=== PATIENT | male | born 1970 | race Caucasian/White ===

== ENCOUNTER 2017-05-04 20:24 | Emergency (ER) | payer MEDICAID ==
[~2017-05-04] VITALS: Ht 180.3 cm; Wt 90.9 kg
[2017-05-04 20:42] LABS: GLUCOSE,POINT OF CARE 107 MG/DL (70-110)
[2017-05-04 20:49] LABS: BASOPHILS % (AUTO) 0.5 % (0.0-2.0); EOSINOPHILS % (AUTO) 2.8 % (1.0-6.0); HEMATOCRIT 43.5 % (41-53); HEMOGLOBIN 14.1 g/dL (13.5-17.5); LYMPHOCYTES # (AUTO) 1.7 K/uL (1.0-4.8); MEAN CORPUSCULAR HEMOGLOBIN 30.8 pg (26.0-34.0); MEAN CORPUSCULAR HGB CONC 32.4 G/dL (31.0-37.0); MEAN CORPUSCULAR VOLUME 95 fL (80-100); MONOCYTES # (AUTO) 0.4 K/uL (0.1-1.0); MONOCYTES % (AUTO) 8.3 % (2.0-9.0); NEUTROPHILS % (AUTO) 56.4 % (40.0-70.0); PLATELET COUNT (AUTO) 264 K/uL (150-450); RED BLOOD CELL COUNT(AUTO) 4.58 MIL/uL (4.50-5.90); RED CELL DISTRIBUTION WIDTH 14.7 % (11.5-14.5); WHITE BLOOD COUNT (AUTO) 5.4 K/uL (4.5-11.0)
[2017-05-04 20:56] LABS: ANION GAP 5 mmol/L (8-16); CALCIUM, TOTAL 9.3 mg/dL (8.8-10.5); CARBON DIOXIDE 31 mmol/L (22-29); CHLORIDE 104 mmol/L (98-107); CREATININE 0.98 mg/dL (0.60-1.30); GLOMERULAR FILTR. RATE CALC > 60 mL/min (>60); POTASSIUM 3.7 mmol/L (3.5-5.1); SODIUM SERUM 140 mmol/L (136-145); UREA NITROGEN, BLOOD 14 mg/dL (7-18)
[2017-05-04 21:02] LABS: ALANINE AMINOTRANSFERASE 55 U/L (12-78); ALBUMIN 4.3 g/dL (3.4-5.0); ASPARTATE AMINOTRANSFERASE 20 U/L (15-37); BILIRUBIN,TOTAL 0.3 mg/dL (0.1-1.0); TOTAL PROTEIN, SERUM 7.9 g/dL (6.4-8.2)
[2017-05-04] MEDS ORDERED: LORazepam 2 MG/ML VIAL IM ONE (21:15)
[2017-05-04] MEDS ORDERED: DiphenhydrAMINE HCL 50 MG/ML VIAL IM ONE (21:15)
[2017-05-04] MEDS ORDERED: HALOPERIDOL LACTATE 5 MG/ML VIAL IM ONE (21:15)
[2017-05-05 01:14] VITALS: BP 120/77
== END 2017-05-05 02:13 | disposition home or self-care (01) ==
LOC: EMS 20:27
DX: F20.9 Schizophrenia, unspecified (principal); F31.9 Bipolar disorder, unspecified; E11.9 Type 2 diabetes mellitus without complications; I10 Essential (primary) hypertension; Z87.891 Personal history of nicotine dependence
CPT/HCPCS: 36415; 80053; 80307; 82962; 85025; 96372; 99285; G0480; J1200; J1630; J2060

== ENCOUNTER 2017-05-19 16:08 | Emergency (ER) | payer MEDICAID ==
[~2017-05-19] VITALS: Ht 182.9 cm; Wt 100.0 kg
[2017-05-19 16:09] VITALS: BP 133/80
== END 2017-05-19 18:15 | disposition left against medical advice (07) ==
LOC: EMS 16:08
DX: Z53.21 Procedure and treatment not carried out due to patient leaving prior to being seen by health care provider (principal)

== ENCOUNTER 2018-04-19 14:17 | Emergency (ER) | payer MEDICAID ==
[~2018-04-19] VITALS: Ht 180.3 cm; Wt 100.0 kg
[~2018-04-19 14:17] MED LIST: RISP3 PO
[2018-04-19 14:38] LABS: GLUCOSE,POINT OF CARE 96 MG/DL (70-110)
[2018-04-19 16:34] LABS: BASOPHILS % (AUTO) 0.5 % (0.0-2.0); EOSINOPHILS % (AUTO) 1.9 % (1.0-6.0); HEMATOCRIT 43.5 % (41-53); HEMOGLOBIN 15.3 g/dL (13.5-17.5); LYMPHOCYTES # (AUTO) 1.6 K/uL (1.0-4.8); LYMPHOCYTES % (AUTO) 28.5 % (22.0-44.0); MEAN CORPUSCULAR HEMOGLOBIN 32.6 pg (26.0-34.0); MEAN CORPUSCULAR VOLUME 93 fL (80-100); MONOCYTES # (AUTO) 0.5 K/uL (0.1-1.0); MONOCYTES % (AUTO) 8.4 % (2.0-9.0); NEUTROPHILS # (AUTO) 3.4 K/uL (1.8-7.7); NEUTROPHILS % (AUTO) 60.7 % (40.0-70.0); PLATELET COUNT (AUTO) 268 K/uL (150-450); RED BLOOD CELL COUNT(AUTO) 4.68 MIL/uL (4.50-5.90); RED CELL DISTRIBUTION WIDTH 13.8 % (11.5-14.5)
[2018-04-19 16:42] LABS: ANION GAP 9 mmol/L (8-16); CALCIUM, TOTAL 8.5 mg/dL (8.8-10.5); CARBON DIOXIDE 29 mmol/L (22-29); CHLORIDE 99 mmol/L (98-107); CREATININE 0.83 mg/dL (0.60-1.30); GLOMERULAR FILTR. RATE CALC > 60 mL/min (>60); GLUCOSE,RANDOM 82 mg/dL (70-110); POTASSIUM 3.5 mmol/L (3.5-5.1); SODIUM SERUM 137 mmol/L (136-145); UREA NITROGEN, BLOOD 13 mg/dL (7-18)
[2018-04-19] MEDS ORDERED: PB/HYOSCY/ATR/SCOP/LIDO/MAALOX 55 ML BOTTLE PO ONE (16:45)
[2018-04-19] MEDS ORDERED: LORazepam 2 MG TABLET PO ONE (16:45)
[2018-04-19] MEDS ORDERED: HALOPERIDOL 5 MG TABLET PO ONE (16:45)
[2018-04-19 16:48] LABS: ALANINE AMINOTRANSFERASE 66 U/L (12-78); ALBUMIN 4.4 g/dL (3.4-5.0); ALKALINE PHOSPHATASE 100 U/L (46-116); ASPARTATE AMINOTRANSFERASE 25 U/L (15-37); BILIRUBIN,TOTAL 0.4 mg/dL (0.1-1.0); TOTAL PROTEIN, SERUM 8.6 g/dL (6.4-8.2)
[2018-04-19 18:21] LABS: AMPHET/METH SCREEN,URINE NEGATIVE (NEGATIVE); BARBITURATE SCREEN, URINE NEGATIVE (NEGATIVE); BENZODIAZEPINES SCREEN,URINE NEGATIVE (NEGATIVE); CANNABINOID SCREEN,URINE NEGATIVE (NEGATIVE); COCAINE SCREEN,URINE NEGATIVE (NEGATIVE); METHADONE SCREEN, URINE NEGATIVE (NEGATIVE); OPIATE SCREEN,URINE NEGATIVE (NEGATIVE)
[2018-04-19 18:26] LABS: PHENCYCLIDINE SCREEN,URINE NEGATIVE (NEGATIVE)
[2018-04-19 20:20] VITALS: BP 124/65
== END 2018-04-19 20:21 | disposition home or self-care (01) ==
LOC: EMS 14:20
DX: F20.9 Schizophrenia, unspecified (principal); R10.31 Right lower quadrant pain; F31.9 Bipolar disorder, unspecified; E11.9 Type 2 diabetes mellitus without complications; I10 Essential (primary) hypertension; Z87.891 Personal history of nicotine dependence
CPT/HCPCS: 36415; 80053; 80307; 82962; 85025; 99284; G0480; Z7610

== ENCOUNTER 2018-04-21 05:36 | Emergency (ER) | payer MEDICAID ==
[~2018-04-21] VITALS: Ht 180.3 cm; Wt 97.7 kg
[2018-04-21 05:51] VITALS: BP 142/80
== END 2018-04-21 06:39 | disposition home or self-care (01) ==
LOC: EMS 05:38
DX: F20.9 Schizophrenia, unspecified (principal); L29.9 Pruritus, unspecified; F31.9 Bipolar disorder, unspecified; E11.9 Type 2 diabetes mellitus without complications; I10 Essential (primary) hypertension; Z59.0 Homelessness; Z87.891 Personal history of nicotine dependence
CPT/HCPCS: 99283; 99406

== ENCOUNTER 2018-04-23 13:38 | Emergency (ER) | payer MEDICAID ==
[~2018-04-23] VITALS: Ht 180.3 cm; Wt 100.0 kg
[2018-04-23 14:03] LABS: GLUCOSE,POINT OF CARE 100 MG/DL (70-110)
[2018-04-23 14:43] VITALS: BP 128/74
[2018-04-23] MEDS ORDERED: NYSTATIN 15 GM POWDER BOTTLE TP ONE (15:00)
[2018-04-23] MEDS ORDERED: TERBINAFINE HCL 1% 30 GM CREAM TP ONE (15:00)
== END 2018-04-23 15:18 | disposition home or self-care (01) ==
LOC: EMS 13:39
DX: B35.3 Tinea pedis (principal); E11.9 Type 2 diabetes mellitus without complications; I10 Essential (primary) hypertension; Z87.891 Personal history of nicotine dependence
CPT/HCPCS: 99283

== ENCOUNTER 2018-05-05 00:30 | Emergency (ER) | payer MEDICAID ==
[~2018-05-05] VITALS: Ht 177.8 cm; Wt 100.0 kg
[2018-05-05 02:14] VITALS: BP 141/75
== END 2018-05-05 02:42 | disposition home or self-care (01) ==
LOC: EMS 00:31
DX: S42.002A Fracture of unspecified part of left clavicle, initial encounter for closed fracture (principal); E11.9 Type 2 diabetes mellitus without complications; I10 Essential (primary) hypertension; F20.9 Schizophrenia, unspecified; Z87.891 Personal history of nicotine dependence; X58.XXXA Exposure to other specified factors, initial encounter; Y93.89 Activity, other specified; Y92.89 Other specified places as the place of occurrence of the external cause; Y99.8 Other external cause status
CPT/HCPCS: 99281

== ENCOUNTER 2018-05-05 19:51 | Emergency (ER) | payer MEDICAID ==
[~2018-05-05] VITALS: Ht 180.3 cm; Wt 100.0 kg
[2018-05-05 21:51] VITALS: BP 133/71
== END 2018-05-05 21:52 | disposition home or self-care (01) ==
LOC: EMS 19:55
DX: S42.002A Fracture of unspecified part of left clavicle, initial encounter for closed fracture (principal); I10 Essential (primary) hypertension; E11.9 Type 2 diabetes mellitus without complications; F20.9 Schizophrenia, unspecified; F32.9 Major depressive disorder, single episode, unspecified; Z87.891 Personal history of nicotine dependence; X58.XXXA Exposure to other specified factors, initial encounter; Y93.89 Activity, other specified; Y92.89 Other specified places as the place of occurrence of the external cause; Y99.8 Other external cause status
CPT/HCPCS: 29105; 99283

== ENCOUNTER 2018-06-05 17:53 | Emergency (ER) | payer MEDICAID ==
[~2018-06-05] VITALS: Ht 177.8 cm; Wt 90.9 kg
[2018-06-05 19:34] LABS: GLUCOSE,POINT OF CARE 98 MG/DL (70-110)
[2018-06-05] MEDS ORDERED: IBUPROFEN 600 MG TABLET PO ONE (20:30)
[2018-06-05 21:48] VITALS: BP 109/65
== END 2018-06-05 22:08 | disposition home or self-care (01) ==
LOC: EMS 17:53
DX: S42.022A Displaced fracture of shaft of left clavicle, initial encounter for closed fracture (principal); F20.9 Schizophrenia, unspecified; E11.8 Type 2 diabetes mellitus with unspecified complications; I10 Essential (primary) hypertension; F31.9 Bipolar disorder, unspecified; Z90.49 Acquired absence of other specified parts of digestive tract; Z87.891 Personal history of nicotine dependence; W19.XXXA Unspecified fall, initial encounter; Y93.89 Activity, other specified; Y92.89 Other specified places as the place of occurrence of the external cause; Y99.8 Other external cause status
CPT/HCPCS: 99284

== ENCOUNTER 2018-06-06 10:43 | Emergency (ER) | payer MEDICAID ==
[~2018-06-06] VITALS: Ht 177.8 cm; Wt 90.9 kg
[2018-06-06] MEDS ORDERED: IBUPROFEN 600 MG TABLET PO ONE (11:30)
[2018-06-06 12:39] LABS: ANION GAP 3 mmol/L (8-16); CALCIUM, TOTAL 8.4 mg/dL (8.8-10.5); CARBON DIOXIDE 28 mmol/L (22-29); CHLORIDE 105 mmol/L (98-107); CREATININE 0.67 mg/dL (0.60-1.30); GLOMERULAR FILTR. RATE CALC > 60 mL/min (>60); GLUCOSE,RANDOM 88 mg/dL (70-110); POTASSIUM 3.8 mmol/L (3.5-5.1); SODIUM SERUM 136 mmol/L (136-145); UREA NITROGEN, BLOOD 10 mg/dL (7-18)
[2018-06-06 12:44] LABS: ALANINE AMINOTRANSFERASE 43 U/L (12-78); ALBUMIN 3.6 g/dL (3.4-5.0); ALKALINE PHOSPHATASE 93 U/L (46-116); ASPARTATE AMINOTRANSFERASE 18 U/L (15-37); BILIRUBIN,TOTAL 0.4 mg/dL (0.1-1.0)
[2018-06-06 12:59] LABS: BASOPHILS % (AUTO) 0.9 % (0.0-2.0); EOSINOPHILS % (AUTO) 3.6 % (1.0-6.0); HEMATOCRIT 41.1 % (41-53); HEMOGLOBIN 14.3 g/dL (13.5-17.5); LYMPHOCYTES # (AUTO) 1.2 K/uL (1.0-4.8); LYMPHOCYTES % (AUTO) 33.7 % (22.0-44.0); MEAN CORPUSCULAR HEMOGLOBIN 32.7 pg (26.0-34.0); MEAN CORPUSCULAR HGB CONC 34.7 G/dL (31.0-37.0); MEAN CORPUSCULAR VOLUME 94 fL (80-100); MONOCYTES # (AUTO) 0.3 K/uL (0.1-1.0); MONOCYTES % (AUTO) 8.3 % (2.0-9.0); NEUTROPHILS % (AUTO) 53.5 % (40.0-70.0); PLATELET COUNT (AUTO) 246 K/uL (150-450); RED BLOOD CELL COUNT(AUTO) 4.37 MIL/uL (4.50-5.90); RED CELL DISTRIBUTION WIDTH 13.6 % (11.5-14.5)
[2018-06-06 13:02] LABS: AMPHET/METH SCREEN,URINE NEGATIVE (NEGATIVE); BARBITURATE SCREEN, URINE NEGATIVE (NEGATIVE); BENZODIAZEPINES SCREEN,URINE NEGATIVE (NEGATIVE); CANNABINOID SCREEN,URINE NEGATIVE (NEGATIVE); COCAINE SCREEN,URINE NEGATIVE (NEGATIVE); METHADONE SCREEN, URINE NEGATIVE (NEGATIVE); OPIATE SCREEN,URINE NEGATIVE (NEGATIVE)
[2018-06-06 13:03] LABS: PHENCYCLIDINE SCREEN,URINE NEGATIVE (NEGATIVE)
[2018-06-06 13:35] VITALS: BP 103/66
== END 2018-06-06 13:55 | disposition home or self-care (01) ==
LOC: EMS 10:45
DX: F20.0 Paranoid schizophrenia (principal); R45.851 Suicidal ideations; E11.9 Type 2 diabetes mellitus without complications; I10 Essential (primary) hypertension; Z87.891 Personal history of nicotine dependence
CPT/HCPCS: 36415; 80053; 80307; 83880; 84484; 85025; 93005; 99285; G0480

== ENCOUNTER 2018-06-25 17:24 | Emergency (ER) | payer MEDICAID ==
[~2018-06-25] VITALS: Ht 177.8 cm; Wt 90.5 kg
[2018-06-25] MEDS ORDERED: KETOROLAC TROMETHAMINE 10 MG TABLET PO ONE (19:45)
[2018-06-25 21:09] VITALS: BP 120/70
== END 2018-06-25 21:12 | disposition home or self-care (01) ==
LOC: EMS 17:25
DX: S40.012A Contusion of left shoulder, initial encounter (principal); S60.419A Abrasion of unspecified finger, initial encounter; I10 Essential (primary) hypertension; E11.9 Type 2 diabetes mellitus without complications; Z87.891 Personal history of nicotine dependence; W01.0XXA Fall on same level from slipping, tripping and stumbling without subsequent striking against object, initial encounter; Y93.89 Activity, other specified; Y92.89 Other specified places as the place of occurrence of the external cause; Y99.8 Other external cause status
CPT/HCPCS: 99284

== ENCOUNTER 2020-12-18 02:10 | Emergency (ER) | payer MEDICAID, OTHER ==
[~2020-12-18] VITALS: Ht 172.7 cm; Wt 79.5 kg
[2020-12-18 04:20] LABS: GLUCOSE,POINT OF CARE 85 MG/DL (70-110)
[2020-12-18 07:10] VITALS: BP 117/73
== END 2020-12-18 07:14 | disposition home or self-care (01) ==
LOC: EMS 02:11
DX: M79.671 Pain in right foot (principal); M79.672 Pain in left foot; I10 Essential (primary) hypertension; E11.9 Type 2 diabetes mellitus without complications; Z87.891 Personal history of nicotine dependence

== ENCOUNTER 2020-12-19 04:43 | Emergency (ER) | payer OTHER ==
[~2020-12-19] VITALS: Ht 175.3 cm; Wt 75.0 kg
[2020-12-19 05:24] VITALS: BP 136/78
[2020-12-19] MEDS ORDERED: BACITRACIN 0.9 GM PACKET OINTMENT TP ONE (05:30)
== END 2020-12-19 06:03 | disposition home or self-care (01) ==
LOC: EMS 04:44
DX: S90.812A Abrasion, left foot, initial encounter (principal); S90.811A Abrasion, right foot, initial encounter; F31.9 Bipolar disorder, unspecified; E11.9 Type 2 diabetes mellitus without complications; I10 Essential (primary) hypertension; Z87.891 Personal history of nicotine dependence; W10.8XXA Fall (on) (from) other stairs and steps, initial encounter; Y93.89 Activity, other specified; Y92.89 Other specified places as the place of occurrence of the external cause; Y99.8 Other external cause status
CPT/HCPCS: Z7502; Z7610

== ENCOUNTER 2021-08-30 07:19 | Emergency (ER) | payer OTHER ==
[~2021-08-30] VITALS: Ht 177.8 cm; Wt 102.3 kg
[2021-08-30] MEDS ORDERED: ACETAMINOPHEN 500 MG TABLET PO ONE (08:30)
[2021-08-30] MEDS ORDERED: LIDOCAINE 5% TRANSDERMAL PATCH TD ONE (08:30)
[2021-08-30 09:56] VITALS: BP 98/56
== END 2021-08-30 10:07 | disposition home or self-care (01) ==
LOC: EMS 07:21
DX: S39.012A Strain of muscle, fascia and tendon of lower back, initial encounter (principal); I10 Essential (primary) hypertension; F20.9 Schizophrenia, unspecified; F31.9 Bipolar disorder, unspecified; X58.XXXA Exposure to other specified factors, initial encounter; Y93.89 Activity, other specified; Y92.89 Other specified places as the place of occurrence of the external cause; Y99.8 Other external cause status; E11.9 Type 2 diabetes mellitus without complications
CPT/HCPCS: 99283

== ENCOUNTER 2021-08-31 01:59 | Emergency (ER) | payer OTHER ==
[~2021-08-31] VITALS: Ht 177.8 cm; Wt 111.4 kg
[2021-08-31 04:09] VITALS: BP 135/78
== END 2021-08-31 07:21 | disposition home or self-care (01) ==
LOC: EMS 02:03
DX: G89.29 Other chronic pain (principal); M54.9 Dorsalgia, unspecified; F31.9 Bipolar disorder, unspecified; F20.9 Schizophrenia, unspecified; I10 Essential (primary) hypertension; E11.9 Type 2 diabetes mellitus without complications; Z87.891 Personal history of nicotine dependence
CPT/HCPCS: 99281; Z7502

== ENCOUNTER 2021-08-31 16:56 | Inpatient (IN) | payer MEDICAID, OTHER ==
[~2021-08-31] VITALS: Ht 177.8 cm; Wt 88.9 kg
[2021-08-31 17:49] LABS: COVID AG,FIA SOURCE NASOPHARYNGEAL
[2021-08-31 18:06] LABS: BASOPHILS % (AUTO) 0.7 % (0.0-2.0); EOSINOPHILS % (AUTO) 1.7 % (1.0-6.0); HEMATOCRIT 39.8 % (41-53); HEMOGLOBIN 13.4 g/dL (13.5-17.5); LYMPHOCYTES # (AUTO) 1.1 K/uL (1.0-4.8); LYMPHOCYTES % (AUTO) 24.9 % (22.0-44.0); MEAN CORPUSCULAR HEMOGLOBIN 30.8 pg (26.0-34.0); MEAN CORPUSCULAR HGB CONC 33.8 G/dL (31.0-37.0); MEAN CORPUSCULAR VOLUME 91 fL (80-100); MONOCYTES # (AUTO) 0.5 K/uL (0.1-1.0); MONOCYTES % (AUTO) 10.8 % (2.0-9.0); NEUTROPHILS # (AUTO) 2.8 K/uL (1.8-7.7); NEUTROPHILS % (AUTO) 61.9 % (40.0-70.0); PLATELET COUNT (AUTO) 258 K/uL (150-450); RED BLOOD CELL COUNT(AUTO) 4.37 MIL/uL (4.50-5.90); RED CELL DISTRIBUTION WIDTH 14.3 % (11.5-14.5)
[2021-08-31 18:37] LABS: ANION GAP 6 mmol/L (8-16); CALCIUM, TOTAL 8.4 mg/dL (8.8-10.5); CARBON DIOXIDE 29 mmol/L (22-29); CHLORIDE 101 mmol/L (98-107); CREATININE 0.83 mg/dL (0.60-1.30); GLOMERULAR FILTR. RATE CALC > 60 mL/min (>60); GLUCOSE,RANDOM 90 mg/dL (70-110); POTASSIUM 4.1 mmol/L (3.5-5.1); SODIUM SERUM 136 mmol/L (136-145); UREA NITROGEN, BLOOD 14 mg/dL (7-18)
[2021-08-31 18:42] LABS: ALANINE AMINOTRANSFERASE 41 U/L (12-78); ALBUMIN 3.9 g/dL (3.4-5.0); ALKALINE PHOSPHATASE 98 U/L (46-116); ASPARTATE AMINOTRANSFERASE 25 U/L (15-37); BILIRUBIN,TOTAL 0.3 mg/dL (0.1-1.0); TOTAL PROTEIN, SERUM 7.9 g/dL (6.4-8.2)
[2021-09-01 07:01] LABS: CHOL/HDL RATIO 3.4 (4.2-7.3); CHOLESTEROL 194 mg/dL (131-200); HDL CHOLESTEROL 57 mg/dL (40-60); LDL CHOL (CALC.) 112 mg/dL (0-130); TRIGLYCERIDES 123 mg/dL (15-150)
[2021-09-01 07:25] LABS: APPEARANCE,URINE CLEAR (CLEAR); BILIRUBIN,URINE NEGATIVE (NEGATIVE); GLUCOSE, URINE (UA) NEGATIVE (NEGATIVE); KETONES,URINE NEGATIVE (NEGATIVE); LEUKOCYTE ESTERASE ,URINE NEGATIVE (NEGATIVE); NITRATE,URINE NEGATIVE (NEGATIVE); OCCULT BLOOD,URINE NEGATIVE (NEGATIVE); PROTEIN,URINE NEGATIVE (NEGATIVE); UROBILINOGEN,URINE 0.2 mg/dL (<=1.0)
[2021-09-01 07:30] LABS: AMPHET/METH SCREEN,URINE NEGATIVE (NEGATIVE); BARBITURATE SCREEN, URINE NEGATIVE (NEGATIVE); BENZODIAZEPINES SCREEN,URINE NEGATIVE (NEGATIVE); CANNABINOID SCREEN,URINE NEGATIVE (NEGATIVE); COCAINE SCREEN,URINE NEGATIVE (NEGATIVE); METHADONE SCREEN, URINE NEGATIVE (NEGATIVE); OPIATE SCREEN,URINE NEGATIVE (NEGATIVE)
[2021-09-01 07:31] LABS: PHENCYCLIDINE SCREEN,URINE NEGATIVE (NEGATIVE)
[2021-09-01] MEDS: LORazepam 2 MG TABLET PO PRN (14:40)
[2021-09-01] MEDS: QUEtiapine FUMARATE 100 MG TABLET PO PRN (14:41)
[2021-09-01 18:13] VITALS: BP 136/84
[2021-09-01] MEDS ORDERED: INFLUENZA VIRUS VACCINE QVS 2021-22 (6MO+)/PF 60 MCG/0.5 ML SYRINGE IM. ONE (18:30)
[2021-09-01] MEDS ORDERED: PNEUMOCOCCAL VACCINE POLYVALENT 0.5 ML VIAL [PPSV23] IM. ONE (18:30)
[2021-09-02] MEDS ORDERED: LOPERAMIDE HCL 2 MG CAPSULE PO PRN (16:00)
[2021-09-02] MEDS ORDERED: NICOTINE 14 MG/24 HOUR PATCH TD PRN (16:00)
[2021-09-02] MEDS ORDERED: DOCUSATE SODIUM 100 MG CAPSULE PO PRN (16:00)
[2021-09-02] MEDS ORDERED: ONDANSETRON HCL 4 MG TABLET PO PRN (16:00)
[2021-09-02] MEDS ORDERED: CloNIDine HCL 0.1 MG TABLET PO PRN (16:00)
[2021-09-02] MEDS ORDERED: MAGNESIUM HYDROXIDE SUSPENSION 30 ML UDCUP PO PRN (16:00)
[2021-09-02] MEDS ORDERED: PETROLATUM,WHITE 28 GM JELLY TP PRN (16:00)
[2021-09-02] MEDS ORDERED: MAG HYDROX/AL HYDROX/SIMETH ES 30 ML SUSPENSION UDCUP PO PRN (16:00)
[2021-09-02] MEDS ORDERED: GuaiFENesin/D-METHORPHAN [SUGAR-FREE] 200-20MG/10 ML SYRUP UDCUP PO PRN (16:00)
[2021-09-02] MEDS ORDERED: ACETAMINOPHEN 325 MG TABLET PO PRN (16:00)
[2021-09-02] MEDS ORDERED: ALBUTEROL SULFATE HFA 90 MCG/PUFF 8 GM INHALER IH PRN (16:00)
[2021-09-02] MEDS ORDERED: IBUPROFEN 400 MG TABLET PO PRN (16:00)
[2021-09-02 16:28] VITALS: BP 110/72
[2021-09-02] MEDS: RisperiDONE 2 MG TABLET PO SCH (17:17)
[2021-09-02] MEDS: ZOLPIDEM TARTRATE 10 MG TABLET PO PRN (22:09)
[2021-09-02] MEDS: LORazepam 2 MG TABLET PO PRN (22:10)
[2021-09-03 09:31] VITALS: BP 121/79
[2021-09-03] MEDS: RisperiDONE 2 MG TABLET PO SCH ×2 (09:31→16:31)
[2021-09-03 16:56] VITALS: BP 110/72
[2021-09-04 00:05] VITALS: BP 100/63
[2021-09-04 08:48] VITALS: BP 91/64
[2021-09-04] MEDS: RisperiDONE 2 MG TABLET PO SCH ×2 (09:36→16:58)
[2021-09-04 16:00] VITALS: BP 116/76
[2021-09-05 08:35] VITALS: BP 102/76
[2021-09-05] MEDS: RisperiDONE 2 MG TABLET PO SCH ×2 (10:56→16:20)
[2021-09-05 16:00] VITALS: BP 106/65
[2021-09-06] MEDS: RisperiDONE 2 MG TABLET PO SCH ×2 (08:36→16:33)
[2021-09-06 14:26] LABS: COVID AG,FIA SOURCE NASAL SWAB
[2021-09-06 16:00] VITALS: BP 104/60
[2021-09-07] MEDS: RisperiDONE 2 MG TABLET PO SCH ×2 (08:04→16:21)
[2021-09-07 08:28] VITALS: BP 103/68
[2021-09-07 16:18] VITALS: BP 110/70
[2021-09-08 08:00] VITALS: BP 107/70
[2021-09-08] MEDS: RisperiDONE 2 MG TABLET PO SCH (13:02)
[2021-09-08 16:00] VITALS: BP 98/62
[2021-09-08] MEDS: RisperiDONE 3 MG TABLET PO SCH (20:28)
[2021-09-09 08:00] VITALS: BP 98/60
[2021-09-09] MEDS: RisperiDONE 3 MG TABLET PO SCH ×2 (09:30→20:45)
[2021-09-09 17:24] VITALS: BP 99/69
[2021-09-10] MEDS: RisperiDONE 3 MG TABLET PO SCH ×2 (08:50→20:20)
[2021-09-10 10:05] VITALS: BP 87/50
[2021-09-10 17:00] VITALS: BP 110/66
[2021-09-11 08:00] VITALS: BP 97/63
[2021-09-11] MEDS: RisperiDONE 3 MG TABLET PO SCH ×2 (09:58→21:45)
[2021-09-11 16:24] VITALS: BP 131/82
[2021-09-11] MEDS: QUEtiapine FUMARATE 100 MG TABLET PO PRN (17:42)
[2021-09-11] MEDS: ZOLPIDEM TARTRATE 10 MG TABLET PO PRN (21:45)
[2021-09-12] MEDS: RisperiDONE 3 MG TABLET PO SCH ×2 (08:36→21:05)
[2021-09-12 08:45] VITALS: BP 104/60
[2021-09-12] MEDS: DIVALPROEX SODIUM 500 MG DR TABLET PO SCH (21:05)
[2021-09-13 01:20] VITALS: BP 101/66
[2021-09-13] MEDS: ZOLPIDEM TARTRATE 10 MG TABLET PO PRN (01:28)
[2021-09-13 09:07] VITALS: BP 96/60
[2021-09-13] MEDS: DIVALPROEX SODIUM 500 MG DR TABLET PO SCH ×2 (13:21→20:18)
[2021-09-13] MEDS: RisperiDONE 3 MG TABLET PO SCH ×2 (13:21→20:18)
[2021-09-13 15:33] LABS: COVID AG,FIA SOURCE NASAL SWAB
[2021-09-13 16:00] VITALS: BP 99/57
[2021-09-14] MEDS: RisperiDONE 3 MG TABLET PO SCH ×2 (08:57→20:16)
[2021-09-14] MEDS: DIVALPROEX SODIUM 500 MG DR TABLET PO SCH ×2 (08:57→20:16)
[2021-09-14 16:00] VITALS: BP 110/81
[2021-09-15 08:17] VITALS: BP 101/51
[2021-09-15] MEDS: RisperiDONE 3 MG TABLET PO SCH ×2 (08:24→20:08)
[2021-09-15] MEDS: DIVALPROEX SODIUM 500 MG DR TABLET PO SCH ×2 (08:24→20:08)
[2021-09-15 16:00] VITALS: BP 103/65
[2021-09-16 00:31] VITALS: BP 104/65
[2021-09-16] MEDS: DIVALPROEX SODIUM 500 MG DR TABLET PO SCH ×2 (08:47→20:48)
[2021-09-16] MEDS: RisperiDONE 3 MG TABLET PO SCH ×2 (08:47→20:48)
[2021-09-16 09:05] VITALS: BP 90/44
[2021-09-16] MEDS: QUEtiapine FUMARATE 100 MG TABLET PO PRN (16:49)
[2021-09-16 16:53] VITALS: BP 90/55
[2021-09-16] MEDS: ZOLPIDEM TARTRATE 10 MG TABLET PO PRN (20:48)
[2021-09-17 08:00] VITALS: BP_SYST 112; BP_SYST 138; BP_DIAS 65; BP_DIAS 81
[2021-09-17] MEDS: RisperiDONE 3 MG TABLET PO SCH ×2 (08:23→20:09)
[2021-09-17] MEDS: DIVALPROEX SODIUM 500 MG DR TABLET PO SCH ×2 (08:23→20:09)
[2021-09-17 16:00] VITALS: BP 95/79
[2021-09-18 09:25] VITALS: BP 108/67
[2021-09-18] MEDS: DIVALPROEX SODIUM 500 MG DR TABLET PO SCH ×2 (09:31→20:26)
[2021-09-18] MEDS: RisperiDONE 3 MG TABLET PO SCH ×2 (09:31→20:26)
[2021-09-18 16:45] VITALS: BP 127/60
[2021-09-19 08:00] VITALS: BP 90/60
[2021-09-19] MEDS: RisperiDONE 3 MG TABLET PO SCH ×2 (08:55→20:49)
[2021-09-19] MEDS: DIVALPROEX SODIUM 500 MG DR TABLET PO SCH ×2 (08:55→20:49)
[2021-09-19] MEDS: QUEtiapine FUMARATE 100 MG TABLET PO PRN (20:49)
[2021-09-19] MEDS: ZOLPIDEM TARTRATE 10 MG TABLET PO PRN (21:07)
[2021-09-20 08:00] VITALS: BP 107/71
[2021-09-20] MEDS: DIVALPROEX SODIUM 500 MG DR TABLET PO SCH ×3 (08:59→21:15)
[2021-09-20] MEDS: RisperiDONE 3 MG TABLET PO SCH ×3 (08:59→21:15)
[2021-09-20 16:33] VITALS: BP 99/67
[2021-09-20] MEDS: QUEtiapine FUMARATE 100 MG TABLET PO PRN (19:29)
[2021-09-20] MEDS: ZOLPIDEM TARTRATE 10 MG TABLET PO PRN (21:15)
[2021-09-21] MEDS: DIVALPROEX SODIUM 500 MG DR TABLET PO SCH ×2 (08:42→20:55)
[2021-09-21] MEDS: RisperiDONE 3 MG TABLET PO SCH ×2 (08:42→20:55)
[2021-09-21 09:29] VITALS: BP 120/84
[2021-09-21 13:00] LABS: COVID AG,FIA SOURCE NASOPHARYNGEAL
[2021-09-21 16:26] VITALS: BP 126/77
[2021-09-21] MEDS: QUEtiapine FUMARATE 100 MG TABLET PO PRN (16:50)
[2021-09-21] MEDS: ZOLPIDEM TARTRATE 10 MG TABLET PO PRN (21:21)
[2021-09-22] MEDS: DIVALPROEX SODIUM 500 MG DR TABLET PO SCH ×2 (08:36→20:19)
[2021-09-22] MEDS: RisperiDONE 3 MG TABLET PO SCH ×2 (08:36→20:19)
[2021-09-22 09:50] VITALS: BP 97/59
[2021-09-22] MEDS: ZOLPIDEM TARTRATE 10 MG TABLET PO PRN (20:20)
[2021-09-23] MEDS: DIVALPROEX SODIUM 500 MG DR TABLET PO SCH ×2 (08:38→20:05)
[2021-09-23] MEDS: RisperiDONE 3 MG TABLET PO SCH ×2 (08:38→20:05)
[2021-09-23 14:34] VITALS: BP 94/61
[2021-09-23 16:00] VITALS: BP 102/70
[2021-09-24] MEDS: DIVALPROEX SODIUM 500 MG DR TABLET PO SCH ×2 (13:37→20:15)
[2021-09-24] MEDS: RisperiDONE 3 MG TABLET PO SCH ×2 (13:38→20:15)
[2021-09-24 16:00] VITALS: BP 116/78
[2021-09-25 08:30] VITALS: BP 102/68
[2021-09-25] MEDS: RisperiDONE 3 MG TABLET PO SCH ×2 (10:03→20:45)
[2021-09-25] MEDS: DIVALPROEX SODIUM 500 MG DR TABLET PO SCH ×2 (10:03→20:45)
[2021-09-25 16:00] VITALS: BP 121/79
[2021-09-25] MEDS: QUEtiapine FUMARATE 100 MG TABLET PO PRN (17:04)
[2021-09-25] MEDS: ZOLPIDEM TARTRATE 10 MG TABLET PO PRN (20:45)
[2021-09-26] MEDS: DIVALPROEX SODIUM 500 MG DR TABLET PO SCH ×2 (08:23→20:15)
[2021-09-26] MEDS: RisperiDONE 3 MG TABLET PO SCH ×2 (08:23→20:15)
[2021-09-26 09:45] VITALS: BP 96/60
[2021-09-26 16:18] VITALS: BP 113/65
[2021-09-27] MEDS: DIVALPROEX SODIUM 500 MG DR TABLET PO SCH ×2 (09:01→20:16)
[2021-09-27] MEDS: RisperiDONE 3 MG TABLET PO SCH ×2 (09:01→20:16)
[2021-09-27 10:32] VITALS: BP 95/66
[2021-09-27 16:00] VITALS: BP 130/69
[2021-09-27 16:57] VITALS: BP 130/69
[2021-09-28 00:10] VITALS: BP 116/76
[2021-09-28 08:30] VITALS: BP 100/60
[2021-09-28] MEDS: RisperiDONE 3 MG TABLET PO SCH ×2 (10:22→20:34)
[2021-09-28] MEDS: DIVALPROEX SODIUM 500 MG DR TABLET PO SCH ×2 (10:22→20:34)
[2021-09-28 15:32] LABS: COVID AG,FIA SOURCE NASOPHARYNGEAL
[2021-09-28 16:00] VITALS: BP 105/73
[2021-09-29 08:42] VITALS: BP 105/63
[2021-09-29] MEDS: DIVALPROEX SODIUM 500 MG DR TABLET PO SCH ×2 (09:05→20:40)
[2021-09-29] MEDS: RisperiDONE 3 MG TABLET PO SCH ×2 (09:05→20:40)
[2021-09-29 16:13] VITALS: BP 130/79
[2021-09-29 16:49] LABS: HEMOGLOBIN A1C 5.5 % (3.8-5.6)
[2021-09-30 00:24] VITALS: BP 108/70
[2021-09-30] MEDS: ZOLPIDEM TARTRATE 10 MG TABLET PO PRN ×2 (00:24→20:30)
[2021-09-30] MEDS: RisperiDONE 3 MG TABLET PO SCH ×2 (08:38→20:29)
[2021-09-30] MEDS: DIVALPROEX SODIUM 500 MG DR TABLET PO SCH ×2 (08:38→20:30)
[2021-09-30 08:45] VITALS: BP 107/69
[2021-09-30 16:00] VITALS: BP 97/60
[2021-10-01 08:00] VITALS: BP 120/70
[2021-10-01] MEDS: DIVALPROEX SODIUM 500 MG DR TABLET PO SCH ×2 (08:24→20:21)
[2021-10-01] MEDS: RisperiDONE 3 MG TABLET PO SCH ×2 (08:24→20:21)
[2021-10-01 16:26] VITALS: BP 98/68
[2021-10-02 08:00] VITALS: BP 104/63
[2021-10-02] MEDS: DIVALPROEX SODIUM 500 MG DR TABLET PO SCH ×2 (10:01→20:03)
[2021-10-02] MEDS: RisperiDONE 3 MG TABLET PO SCH ×2 (10:01→20:03)
[2021-10-02 16:24] VITALS: BP 113/76
[2021-10-03] MEDS: DIVALPROEX SODIUM 500 MG DR TABLET PO SCH ×2 (09:46→21:06)
[2021-10-03] MEDS: MULTIVITAMINS WITH IRON TABLET PO SCH (09:46)
[2021-10-03] MEDS: RisperiDONE 3 MG TABLET PO SCH ×2 (09:46→21:06)
[2021-10-03 10:21] VITALS: BP 112/55
[2021-10-03] MEDS ORDERED: IBUPROFEN 400 MG TABLET PO PRN (10:45)
[2021-10-03] MEDS ORDERED: PETROLATUM,WHITE 28 GM JELLY TP PRN (10:45)
[2021-10-03] MEDS ORDERED: DOCUSATE SODIUM 100 MG CAPSULE PO PRN (10:45)
[2021-10-03] MEDS ORDERED: ALBUTEROL SULFATE HFA 90 MCG/PUFF 8 GM INHALER IH PRN (10:45)
[2021-10-03] MEDS ORDERED: NICOTINE 14 MG/24 HOUR PATCH TD PRN (10:45)
[2021-10-03] MEDS ORDERED: LOPERAMIDE HCL 2 MG CAPSULE PO PRN (10:45)
[2021-10-03] MEDS ORDERED: GuaiFENesin/D-METHORPHAN [SUGAR-FREE] 200-20MG/10 ML SYRUP UDCUP PO PRN (10:45)
[2021-10-03] MEDS ORDERED: MAGNESIUM HYDROXIDE SUSPENSION 30 ML UDCUP PO PRN (10:45)
[2021-10-03] MEDS ORDERED: ACETAMINOPHEN 325 MG TABLET PO PRN (10:45)
[2021-10-03] MEDS ORDERED: ONDANSETRON HCL 4 MG TABLET PO PRN (10:45)
[2021-10-03] MEDS ORDERED: MAG HYDROX/AL HYDROX/SIMETH ES 30 ML SUSPENSION UDCUP PO PRN (10:45)
[2021-10-03] MEDS ORDERED: CloNIDine HCL 0.1 MG TABLET PO PRN (10:45)
[2021-10-03 17:20] VITALS: BP 103/70
[2021-10-03] MEDS: QUEtiapine FUMARATE 100 MG TABLET PO PRN (18:04)
[2021-10-03] MEDS: ZOLPIDEM TARTRATE 10 MG TABLET PO PRN (21:06)
[2021-10-04] MEDS ORDERED: RISP3TAB44 PO (00:41)
[2021-10-04] MEDS ORDERED: DIVA-112 PO (00:41)
[2021-10-04 08:00] VITALS: BP 117/84
[2021-10-04] MEDS: RisperiDONE 3 MG TABLET PO SCH (08:32)
[2021-10-04] MEDS: DIVALPROEX SODIUM 500 MG DR TABLET PO SCH (08:32)
[2021-10-04] MEDS: MULTIVITAMINS WITH IRON TABLET PO SCH (08:32)
== END 2021-10-04 10:40 | disposition home or self-care (01) | DRG 750 ==
LOC: EMS 16:59 → 3EI 09-01 16:30
PROVIDERS: ADMIT Psychiatry & Neurology Psychiatry; ATTEND Psychiatry & Neurology Psychiatry
DX: F20.0 Paranoid schizophrenia (principal); E11.9 Type 2 diabetes mellitus without complications; E86.0 Dehydration; D64.9 Anemia, unspecified; F10.10 Alcohol abuse, uncomplicated; F99 Mental disorder, not otherwise specified; I10 Essential (primary) hypertension; Z20.822 Contact with and (suspected) exposure to COVID-19; Z71.41 Alcohol abuse counseling and surveillance of alcoholic; Z79.899 Other long term (current) drug therapy; Z59.00 Homelessness unspecified; Z87.891 Personal history of nicotine dependence
CPT/HCPCS: 80053; 80061; 80164; 81003; 83036; 85025; G0480

== ENCOUNTER 2022-06-09 21:09 | Inpatient (IN) | payer MEDICAID, OTHER ==
[~2022-06-09] VITALS: Ht 180.3 cm; Wt 88.1 kg
[~2022-06-09 21:09] MED LIST changes: +DIVA-112 PO; -RISP3 PO; +RISP3TAB44 PO
[2022-06-10] MEDS ORDERED: ValACYclovir HCL 500 MG TABLET PO ONE
[2022-06-10] MEDS ORDERED: DOXYCYCLINE HYCLATE 100 MG TABLET PO ONE
[2022-06-10] MEDS ORDERED: CefTRIAXone SODIUM 1 GM/VIAL IM ONE
[2022-06-10] MEDS ORDERED: LIDOCAINE/PF 1% 2 ML VIAL IM ONE
[2022-06-10] MEDS ORDERED: LORazepam 1 MG TABLET PO ONE
[2022-06-10] MEDS ORDERED: RisperiDONE 1 MG TABLET PO ONE
[2022-06-10 00:02] LABS: BASOPHILS % (AUTO) 0.6 % (0.0-2.0); EOSINOPHILS % (AUTO) 1.6 % (1.0-6.0); HEMATOCRIT 39.2 % (41-53); HEMOGLOBIN 13.3 g/dL (13.5-17.5); LYMPHOCYTES # (AUTO) 1.7 K/uL (1.0-4.8); LYMPHOCYTES % (AUTO) 24.8 % (22.0-44.0); MEAN CORPUSCULAR HEMOGLOBIN 32.1 pg (26.0-34.0); MEAN CORPUSCULAR HGB CONC 33.8 G/dL (31.0-37.0); MEAN CORPUSCULAR VOLUME 95 fL (80-100); MONOCYTES # (AUTO) 0.5 K/uL (0.1-1.0); MONOCYTES % (AUTO) 7.7 % (2.0-9.0); NEUTROPHILS # (AUTO) 4.4 K/uL (1.8-7.7); NEUTROPHILS % (AUTO) 65.3 % (40.0-70.0); PLATELET COUNT (AUTO) 255 K/uL (150-450); RED BLOOD CELL COUNT(AUTO) 4.13 MIL/uL (4.50-5.90); RED CELL DISTRIBUTION WIDTH 14.5 % (11.5-14.5)
[2022-06-10 00:13] LABS: ANION GAP 4 mmol/L (8-16); CALCIUM, TOTAL 9.1 mg/dL (8.8-10.5); CARBON DIOXIDE 29 mmol/L (22-29); CHLORIDE 103 mmol/L (98-107); CREATININE 0.74 mg/dL (0.60-1.30); GLOMERULAR FILTR. RATE CALC > 60 mL/min (>60); GLUCOSE,RANDOM 102 mg/dL (70-110); SODIUM SERUM 136 mmol/L (136-145); UREA NITROGEN, BLOOD 13 mg/dL (7-18)
[2022-06-10 00:18] LABS: ALANINE AMINOTRANSFERASE 53 U/L (12-78); ALKALINE PHOSPHATASE 89 U/L (46-116); ASPARTATE AMINOTRANSFERASE 25 U/L (15-37); BILIRUBIN,TOTAL 0.4 mg/dL (0.1-1.0); TOTAL PROTEIN, SERUM 7.7 g/dL (6.4-8.2)
[2022-06-10 00:48] LABS: APPEARANCE,URINE CLEAR (CLEAR); BILIRUBIN,URINE NEGATIVE (NEGATIVE); GLUCOSE, URINE (UA) TRACE mg/dL (NEGATIVE); KETONES,URINE NEGATIVE (NEGATIVE); LEUKOCYTE ESTERASE ,URINE TRACE (NEGATIVE); NITRATE,URINE NEGATIVE (NEGATIVE); OCCULT BLOOD,URINE NEGATIVE (NEGATIVE); PROTEIN,URINE NEGATIVE (NEGATIVE); SPECIFIC GRAVITIY, URINE 1.011 (1.003-1.030); UROBILINOGEN,URINE <=1.0 mg/dL (<=1.0)
[2022-06-10 00:53] LABS: AMPHET/METH SCREEN,URINE NEGATIVE (NEGATIVE); BARBITURATE SCREEN, URINE NEGATIVE (NEGATIVE); BENZODIAZEPINES SCREEN,URINE NEGATIVE (NEGATIVE); CANNABINOID SCREEN,URINE NEGATIVE (NEGATIVE); COCAINE SCREEN,URINE NEGATIVE (NEGATIVE); METHADONE SCREEN, URINE NEGATIVE (NEGATIVE); OPIATE SCREEN,URINE NEGATIVE (NEGATIVE)
[2022-06-10 00:57] LABS: PHENCYCLIDINE SCREEN,URINE NEGATIVE (NEGATIVE)
[2022-06-10 01:02] LABS: BACTERIA,URINE None Seen /HPF (None Seen); RBC,URINE None Seen /HPF (0-2); WBC,URINE 0-2 /HPF (0-5)
[2022-06-10 03:14] LABS: COVID AG,FIA SOURCE NASOPHARYNGEAL
[2022-06-10 15:03] VITALS: BP 122/65
[2022-06-10 15:05] VITALS: BP 122/72
[2022-06-10] MEDS ORDERED: PNEUMOCOCCAL VACCINE POLYVALENT 0.5 ML VIAL [PPSV23] IM. ONE (15:15)
[2022-06-10 15:16] LABS: GLUCOMETER DEV NAME(LOC) BV3N.; GLUCOSE,POINT OF CARE 100 MG/DL (70-110)
[2022-06-10] MEDS: LORazepam 2 MG TABLET PO PRN (19:37)
[2022-06-10] MEDS: HALOPERIDOL 5 MG TABLET PO PRN (19:37)
[2022-06-10] MEDS: ZOLPIDEM TARTRATE 10 MG TABLET PO PRN (20:28)
[2022-06-11] MEDS ORDERED: DOCUSATE SODIUM 100 MG CAPSULE PO PRN (06:45)
[2022-06-11] MEDS ORDERED: PETROLATUM,WHITE 28 GM JELLY TP PRN (06:45)
[2022-06-11] MEDS ORDERED: GuaiFENesin/D-METHORPHAN [SUGAR-FREE] 200-20MG/10 ML SYRUP UDCUP PO PRN (06:45)
[2022-06-11] MEDS ORDERED: ALBUTEROL SULFATE HFA 90 MCG/PUFF 8 GM INHALER IH PRN (06:45)
[2022-06-11] MEDS ORDERED: MAGNESIUM HYDROXIDE SUSPENSION 30 ML UDCUP PO PRN (06:45)
[2022-06-11] MEDS ORDERED: ONDANSETRON HCL 4 MG TABLET PO PRN (06:45)
[2022-06-11] MEDS ORDERED: NICOTINE 14 MG/24 HOUR PATCH TD PRN (06:45)
[2022-06-11] MEDS ORDERED: CloNIDine HCL 0.1 MG TABLET PO PRN (06:45)
[2022-06-11] MEDS ORDERED: ACETAMINOPHEN 325 MG TABLET PO PRN (06:45)
[2022-06-11] MEDS ORDERED: LOPERAMIDE HCL 2 MG CAPSULE PO PRN (06:45)
[2022-06-11] MEDS ORDERED: IBUPROFEN 400 MG TABLET PO PRN (06:45)
[2022-06-11] MEDS ORDERED: MAG HYDROX/AL HYDROX/SIMETH ES 30 ML SUSPENSION UDCUP PO PRN (06:45)
[2022-06-11 08:02] VITALS: BP 122/73
[2022-06-11] MEDS: DIVALPROEX SODIUM 500 MG DR TABLET PO SCH ×2 (12:57→20:40)
[2022-06-11] MEDS: RisperiDONE 3 MG TABLET PO SCH ×2 (12:57→20:40)
[2022-06-11] MEDS: HALOPERIDOL 5 MG TABLET PO PRN ×2 (12:58→17:03)
[2022-06-11] MEDS: LORazepam 2 MG TABLET PO PRN ×2 (12:58→17:03)
[2022-06-11 16:02] VITALS: BP 106/63
[2022-06-11] MEDS: ZOLPIDEM TARTRATE 10 MG TABLET PO PRN (20:40)
[2022-06-12 08:03] VITALS: BP 112/64
[2022-06-12] MEDS: DIVALPROEX SODIUM 500 MG DR TABLET PO SCH ×2 (08:03→21:04)
[2022-06-12] MEDS: RisperiDONE 3 MG TABLET PO SCH ×2 (08:03→21:04)
[2022-06-12] MEDS: LORazepam 2 MG TABLET PO PRN ×2 (08:04→17:01)
[2022-06-12] MEDS: HALOPERIDOL 5 MG TABLET PO PRN (17:01)
[2022-06-12 20:06] VITALS: BP 108/62
[2022-06-13] MEDS: DIVALPROEX SODIUM 500 MG DR TABLET PO SCH ×2 (08:20→20:09)
[2022-06-13] MEDS: RisperiDONE 3 MG TABLET PO SCH ×2 (08:20→20:09)
[2022-06-13 09:39] VITALS: BP 85/52
[2022-06-13 20:23] VITALS: BP 102/63
[2022-06-14 07:13] LABS: HEMOGLOBIN A1C 5.2 % (3.8-5.6)
[2022-06-14 07:14] LABS: ALANINE AMINOTRANSFERASE 29 U/L (12-78); ALBUMIN 3.4 g/dL (3.4-5.0); ALKALINE PHOSPHATASE 82 U/L (46-116); ANION GAP 12 mmol/L (8-16); ASPARTATE AMINOTRANSFERASE 12 U/L (15-37); BILIRUBIN,TOTAL 0.4 mg/dL (0.1-1.0); CALCIUM, TOTAL 9.2 mg/dL (8.8-10.5); CARBON DIOXIDE 27 mmol/L (22-29); CHLORIDE 103 mmol/L (98-107); CHOL/HDL RATIO 4.1 (4.2-7.3); CHOLESTEROL 214 mg/dL (131-200); FREE T4 (FREE THYROXINE) 1.02 ng/dL (0.76-1.46); GLUCOSE,RANDOM 110 mg/dL (70-110); HDL CHOLESTEROL 52 mg/dL (40-60); LDL CHOL (CALC.) 143 mg/dL (0-130); POTASSIUM 4.4 mmol/L (3.5-5.1); SODIUM SERUM 142 mmol/L (136-145); THYROID STIMULATING HORMONE 0.98 uIU/mL (0.36-3.74); TOTAL PROTEIN, SERUM 6.7 g/dL (6.4-8.2); TRIGLYCERIDES 93 mg/dL (15-150); UREA NITROGEN, BLOOD 13 mg/dL (7-18)
[2022-06-14 07:15] LABS: GLOMERULAR FILTR. RATE CALC > 60 mL/min (>60)
[2022-06-14] MEDS: DIVALPROEX SODIUM 500 MG DR TABLET PO SCH ×2 (08:20→20:28)
[2022-06-14] MEDS: RisperiDONE 3 MG TABLET PO SCH ×2 (08:20→20:28)
[2022-06-14 09:27] VITALS: BP 118/70
[2022-06-15 01:50] VITALS: BP 114/68
[2022-06-15 08:15] VITALS: BP 121/74
[2022-06-15] MEDS: RisperiDONE 3 MG TABLET PO SCH ×2 (08:24→20:05)
[2022-06-15] MEDS: DIVALPROEX SODIUM 500 MG DR TABLET PO SCH ×2 (08:24→20:05)
[2022-06-16 04:11] VITALS: BP 117/86
[2022-06-16] MEDS: DIVALPROEX SODIUM 500 MG DR TABLET PO SCH ×2 (08:02→20:40)
[2022-06-16] MEDS: RisperiDONE 3 MG TABLET PO SCH ×2 (08:02→20:40)
[2022-06-16 08:05] VITALS: BP 132/68
[2022-06-16 20:05] VITALS: BP 108/64
[2022-06-17] MEDS: RisperiDONE 3 MG TABLET PO SCH ×2 (08:13→20:20)
[2022-06-17] MEDS: DIVALPROEX SODIUM 500 MG DR TABLET PO SCH ×2 (08:13→20:20)
[2022-06-17 20:03] VITALS: BP 105/69
[2022-06-18] MEDS: RisperiDONE 3 MG TABLET PO SCH ×2 (08:07→20:13)
[2022-06-18] MEDS: DIVALPROEX SODIUM 500 MG DR TABLET PO SCH ×2 (08:07→20:13)
[2022-06-18 13:26] VITALS: BP 122/64
[2022-06-18] MEDS: LORazepam 2 MG TABLET PO PRN (17:07)
[2022-06-19] MEDS: LORazepam 2 MG TABLET PO PRN ×2 (08:00→20:09)
[2022-06-19] MEDS: RisperiDONE 3 MG TABLET PO SCH ×2 (08:00→20:09)
[2022-06-19] MEDS: DIVALPROEX SODIUM 500 MG DR TABLET PO SCH ×2 (08:00→20:08)
[2022-06-19 08:10] VITALS: BP 102/53
[2022-06-19 12:36] LABS: GLUCOMETER DEV NAME(LOC) POC.BV
[2022-06-19 21:16] VITALS: BP 130/79
[2022-06-20 04:28] VITALS: BP 126/88
[2022-06-20] MEDS: RisperiDONE 3 MG TABLET PO SCH ×2 (08:29→20:51)
[2022-06-20] MEDS: DIVALPROEX SODIUM 500 MG DR TABLET PO SCH ×2 (08:29→20:51)
[2022-06-20] MEDS: LORazepam 2 MG TABLET PO PRN (17:21)
[2022-06-20] MEDS: HALOPERIDOL 5 MG TABLET PO PRN (17:21)
[2022-06-20 20:17] VITALS: BP 100/62
[2022-06-21] MEDS: LORazepam 2 MG TABLET PO PRN ×2 (08:13→17:08)
[2022-06-21] MEDS: DIVALPROEX SODIUM 500 MG DR TABLET PO SCH ×2 (08:13→20:26)
[2022-06-21] MEDS: RisperiDONE 3 MG TABLET PO SCH ×2 (08:13→20:26)
[2022-06-21 10:55] VITALS: BP 115/63
[2022-06-21] MEDS: HALOPERIDOL 5 MG TABLET PO PRN (17:08)
[2022-06-21 20:18] VITALS: BP 106/62
[2022-06-22] MEDS: DIVALPROEX SODIUM 500 MG DR TABLET PO SCH ×2 (09:25→20:43)
[2022-06-22] MEDS: RisperiDONE 3 MG TABLET PO SCH ×2 (09:25→20:43)
[2022-06-22 13:01] VITALS: BP 115/58
[2022-06-22] MEDS: LORazepam 2 MG TABLET PO PRN (17:00)
[2022-06-22] MEDS: HALOPERIDOL 5 MG TABLET PO PRN (17:00)
[2022-06-22 20:07] VITALS: BP 106/64
[2022-06-22] MEDS: ZOLPIDEM TARTRATE 10 MG TABLET PO PRN (20:44)
[2022-06-23 08:21] VITALS: BP 101/66
[2022-06-23] MEDS: DIVALPROEX SODIUM 500 MG DR TABLET PO SCH ×2 (08:51→20:30)
[2022-06-23] MEDS: RisperiDONE 3 MG TABLET PO SCH ×2 (08:51→20:30)
[2022-06-23 20:06] VITALS: BP 102/60
[2022-06-23] MEDS: ZOLPIDEM TARTRATE 10 MG TABLET PO PRN (20:30)
[2022-06-24] MEDS: RisperiDONE 3 MG TABLET PO SCH ×2 (08:09→20:41)
[2022-06-24] MEDS: DIVALPROEX SODIUM 500 MG DR TABLET PO SCH ×2 (08:10→20:41)
[2022-06-24 08:24] VITALS: BP 105/61
[2022-06-24 20:16] VITALS: BP 100/57
[2022-06-24] MEDS: ZOLPIDEM TARTRATE 10 MG TABLET PO PRN (20:41)
[2022-06-24] MEDS: LORazepam 2 MG TABLET PO PRN (22:15)
[2022-06-25] MEDS: RisperiDONE 3 MG TABLET PO SCH ×2 (08:36→20:26)
[2022-06-25] MEDS: DIVALPROEX SODIUM 500 MG DR TABLET PO SCH ×2 (08:36→20:26)
[2022-06-25 09:12] VITALS: BP 104/55
[2022-06-25] MEDS: LORazepam 2 MG TABLET PO PRN ×2 (16:25→20:26)
[2022-06-25 20:11] VITALS: BP 108/67
[2022-06-25] MEDS: ZOLPIDEM TARTRATE 10 MG TABLET PO PRN (20:26)
[2022-06-26] MEDS: LORazepam 2 MG TABLET PO PRN ×3 (08:15→20:15)
[2022-06-26] MEDS: RisperiDONE 3 MG TABLET PO SCH ×2 (08:15→20:15)
[2022-06-26] MEDS: DIVALPROEX SODIUM 500 MG DR TABLET PO SCH ×2 (08:15→20:14)
[2022-06-26 08:21] VITALS: BP 100/57
[2022-06-26] MEDS: HALOPERIDOL 5 MG TABLET PO PRN (16:04)
[2022-06-26 20:00] VITALS: BP 108/64
[2022-06-26] MEDS: ZOLPIDEM TARTRATE 10 MG TABLET PO PRN (20:15)
[2022-06-27 08:07] VITALS: BP 114/83
[2022-06-27] MEDS: DIVALPROEX SODIUM 500 MG DR TABLET PO SCH ×2 (08:08→21:05)
[2022-06-27] MEDS: RisperiDONE 3 MG TABLET PO SCH ×2 (08:08→21:05)
[2022-06-27 10:41] LABS: GLUCOMETER DEV NAME(LOC) POC.BV
[2022-06-27 22:24] VITALS: BP 110/79
[2022-06-28] MEDS: DIVALPROEX SODIUM 500 MG DR TABLET PO SCH ×2 (09:58→20:42)
[2022-06-28] MEDS: RisperiDONE 3 MG TABLET PO SCH ×2 (09:58→20:42)
[2022-06-28 17:34] VITALS: BP 92/57
[2022-06-28 22:36] VITALS: BP 105/64
[2022-06-29 08:10] VITALS: BP 100/64
[2022-06-29] MEDS: RisperiDONE 3 MG TABLET PO SCH ×2 (08:22→20:22)
[2022-06-29] MEDS: DIVALPROEX SODIUM 500 MG DR TABLET PO SCH ×2 (08:22→20:22)
[2022-06-29] MEDS: LORazepam 2 MG TABLET PO PRN (08:22)
[2022-06-29 20:18] VITALS: BP 103/66
[2022-06-29] MEDS: ZOLPIDEM TARTRATE 10 MG TABLET PO PRN (20:23)
[2022-06-30] MEDS: RisperiDONE 3 MG TABLET PO SCH ×2 (08:11→20:23)
[2022-06-30] MEDS: DIVALPROEX SODIUM 500 MG DR TABLET PO SCH ×2 (08:11→20:23)
[2022-06-30 08:15] VITALS: BP 110/62
[2022-06-30] MEDS: HALOPERIDOL 5 MG TABLET PO PRN (16:09)
[2022-06-30] MEDS: LORazepam 2 MG TABLET PO PRN ×2 (16:09→20:23)
[2022-06-30] MEDS: ZOLPIDEM TARTRATE 10 MG TABLET PO PRN (20:24)
[2022-06-30 20:42] VITALS: BP 130/72
[2022-07-01 08:11] VITALS: BP 105/61
[2022-07-01] MEDS: DIVALPROEX SODIUM 500 MG DR TABLET PO SCH ×2 (08:28→20:31)
[2022-07-01] MEDS: RisperiDONE 3 MG TABLET PO SCH ×2 (08:28→20:31)
[2022-07-01] MEDS: LORazepam 2 MG TABLET PO PRN ×2 (16:07→20:32)
[2022-07-01] MEDS: HALOPERIDOL 5 MG TABLET PO PRN (16:08)
[2022-07-01 20:22] VITALS: BP 116/72
[2022-07-01] MEDS: ZOLPIDEM TARTRATE 10 MG TABLET PO PRN (20:32)
[2022-07-02 08:29] VITALS: BP 93/59
[2022-07-02] MEDS: DIVALPROEX SODIUM 500 MG DR TABLET PO SCH (08:31)
[2022-07-02] MEDS: RisperiDONE 3 MG TABLET PO SCH (08:31)
== END 2022-07-02 16:53 | disposition home or self-care (01) | DRG 750 ==
LOC: EMS 21:21 → B3A 06-10 10:57
PROVIDERS: ADMIT Psychiatry & Neurology Child & Adolescent Psychiatry; ATTEND Psychiatry & Neurology Child & Adolescent Psychiatry
DX: F20.0 Paranoid schizophrenia (principal); R45.851 Suicidal ideations; R45.850 Homicidal ideations; E11.9 Type 2 diabetes mellitus without complications; A60.02 Herpesviral infection of other male genital organs; D64.9 Anemia, unspecified; F31.9 Bipolar disorder, unspecified; I10 Essential (primary) hypertension; K21.9 Gastro-esophageal reflux disease without esophagitis; Z20.822 Contact with and (suspected) exposure to COVID-19; Z87.891 Personal history of nicotine dependence; Z91.19 Patient's noncompliance with other medical treatment and regimen
CPT/HCPCS: 80053; 80061; 80164; 81001; 82962; 83036; 84439; 84443; 85025; 87491; 87591; 99285; G0480; J0696; J3490